=== PATIENT | female | born 1985 | race Caucasian/White ===

== ENCOUNTER 2016-04-23 19:26 | Emergency (ER) | payer OTHER ==
[2016-04-23 19:37] VITALS: O2SAT 97
[2016-04-23] MEDS ORDERED: HYDROCOD/APAP 5/325 PREPACK#6 BTL TAKEHOME ONE (21:52)
--- NOTE | 2016-04-23 21:52 | EDPHY ---
HPI/HX/ROS/PE/MDM Narrative: Chief complaint: Slip on ice, head and coccyx pain HPI: 30-year-old female who had a mechanical slip and fall on the ice falling down 4 stairs. Patient states she landed on her buttocks and then fell backwards and struck her head. She had no loss of consciousness. She has full recollection of events. Currently is complaining of severe tailbone pain. No abdominal pain. She is ambulating with some discomfort. No numbness or weakness. No low back pain. No leg pain. No vision or hearing changes. No nausea or vomiting. ROS: 10 point Review of Systems is negative except as noted in the HPI. Physical exam: Gen: Awake, Alert, No Distress HEENT: Head: Atraumatic Nose: no rhinorrhea Eyes: PERRLA, EOMI Mouth: Moist mucosa Neck: Supple, no JVD Chest: nontender, lungs clear to auscultation Heart: S1, S2 normal, no murmur Abd: Soft, non-tender, no guarding Back: no CVA tenderness, no midline tenderness she has significant tenderness over her coccyx. There is no deformity. She has no pelvis tenderness. She is no lumbar tenderness. Ext: no edema, non-tender, bilateral lower extremity full range of motion without pain. Skin: no rash Neuro: CN II-XII intact, Sensation grossly intact, Strength 5/5 in bilateral upper and lower extremities General Time Seen by Provider: 04/23/16 21:44 Initial Vital Signs: Initial Vital Signs Temperature (C) 36.3 C 04/23/16 19:33 Heart Rate 127 H 04/23/16 19:33 Respiratory Rate 17 04/23/16 19:33 Blood Pressure 132/100 H 04/23/16 19:33 O2 Sat (%) 97 04/23/16 19:33 O2 Delivery Mode Room Air Allergies/Adverse Reactions: ciprofloxacin Allergy (Verified 04/23/16 19:32) Home Medications: Medication Instructions Recorded Albuterol 5 mg/ml INH 04/23/16 Hydrocodone/Acetaminophen 1 - 2 each PO Q4-6PRN PRN #10 04/23/16 [Hydrocodon-Acetaminophen 5-325] tablet Trinessa Tablet 04/23/16 Departure - Departure Disposition: Home, Routine, Self-Care Clinical Impression: Coccyx pain, Head injury Condition: Good Instructions: Hydrocodone/Acetaminophen (By mouth), Coccyx Injury (ED), Head Injury (ED) Additional Instructions: Make sure you take pain medicine as needed for your pain. Go to the pharmacy tomorrow and purchase a donut pillow. Drink plenty of fluids make sure he did not get constipated and have regular bowel movements. If you feel you are getting constipated start taking MiraLax [id number]. Follow up were [facility] in about 4-5 days for recheck. Return to the emergency depart for increasing pain, headache, nausea, vomiting, constipation, or other concerns. [place]errals[place],. [Primary Care Provider] - As per Instructions Prescriptions: Hydrocodone/Acetaminophen [Hydrocodon-Acetaminophen 5-325] 1 - 2 each PO Q4- 6PRN PRN #10 tablet PRN Reason: Pain, Severe
[2016-04-23 22:02] VITALS: BP 121/70; PULSE 90; RESP 16; TEMP 97.9
== END 2016-04-23 22:00 | disposition home or self-care (01) ==
DX: S09.90XA Unspecified injury of head, initial encounter (principal); S39.92XA Unspecified injury of lower back, initial encounter; W00.0XXA Fall on same level due to ice and snow, initial encounter